=== PATIENT | male | born 1940 | race Caucasian/White ===

== ENCOUNTER 2018-02-16 19:27 | Emergency (ER) | payer MEDICARE, OTHER ==
--- NOTE | 2018-02-16 19:53 | ERPHSYRPT ---
- History of Present Illness Time Seen by Provider: 02/16/18 19:45 Source: patient Exam Limitations: no limitations Physician History: Is a 77-year-old white male arrives with complaint of bleeding from the left side of his face for 2-3 hours. Patient had a basal cell carcinoma removed from the left side of his face at approximately 2 to 3:00 this afternoon. Patient states that he had a small spot of bleeding after procedure but about 2- 3 hours ago he began having bleeding on the left side of his face. Patient states he placed ice pack on the area and continued bleeding. Past medical history includes polycythemia vera, atrial fibrillation, high blood pressure, diabetes 2 Past surgical history includes total hip arthroplasty (bilateral), shoulder surgery. Timing/Duration: today (basal cell removed left side of face at 2 or 3 this afternoon bleeding for 2-3 hours) Severity: moderate Associated Symptoms: No nausea, No vomiting, No abdominal pain, No shortness of breath, No heartburn, No diaphoresis, No cough, No chills, No chest pain, No fever, No headaches, No loss of appetite, No malaise, No rash, No syncope, No seizure, No weakness Allergies/Adverse Reactions: hydrocodone Adverse Reaction (Verified 02/16/18 20:56) "makes me crazy" - Review of Systems Constitutional: No Fever, No Chills Eyes: No Symptoms Ears, Nose, & Throat: No Symptoms Respiratory: No Cough, No Dyspnea Cardiac: No Chest Pain, No Edema, No Syncope Abdominal/Gastrointestinal: No Abdominal Pain, No Nausea, No Vomiting, No Diarrhea Genitourinary Symptoms: No Dysuria Musculoskeletal: No Back Pain, No Neck Pain Skin: Other (basal cell removed left side of face bleeding at wound site) Neurological: No Dizziness, No Focal Weakness, No Sensory Changes Psychological: No Symptoms Endocrine: No Symptoms All Other Systems: Reviewed and Negative - Past Medical History Pertinent Past Medical History: Yes Cardiac History: Arrhythmia (atrial fibrillation) - Nursing Vital Signs Nursing Vital Signs: Initial Vital Signs Temperature 98 F 02/16/18 20:44 Pulse Rate 96 H 02/16/18 20:44 Respiratory Rate 18 02/16/18 20:44 Blood Pressure 161/110 02/16/18 20:44 O2 Sat by Pulse Oximetry 96 02/16/18 20:44 Pain Scale Pain Intensity 4 - Physical Exam General Appearance: mild distress, other (edema left side of face , sutures present bleeding from wound) Eye Exam: PERRL/EOMI, eyes nml inspection Ears, Nose, Throat Exam: normal ENT inspection, TMs normal, pharynx normal, moist mucous membranes Neck Exam: normal inspection, non-tender, supple, full range of motion Respiratory Exam: normal breath sounds, lungs clear, No respiratory distress Cardiovascular Exam: regular rate/rhythm Gastrointestinal/Abdomen Exam: soft, normal bowel sounds, No tenderness, No mass Back Exam: normal inspection, normal range of motion, No CVA tenderness, No vertebral tenderness Extremity Exam: normal inspection, normal range of motion, pelvis stable Neurologic Exam: alert, oriented x 3, cooperative, normal mood/affect, nml cerebellar function, nml station & gait, sensation nml, No motor deficits Skin Exam: other (surgical wound left side of face sutures in place bleeding from wound.) SpO2 Interpretation: normal - Course Nursing assessment & vital signs reviewed: Yes Ordered Tests: Active Orders 24 hr Category Date Time Status IV Insertion STAT Care 02/16/18 19:44 Active - Progress Progress: improved Progress Note: 02/16/18 20:09 This is a 77-year-old white male status post basal cell carcinoma removal this afternoon around 2:00. Patient states that for 2-3 hours he's been having bleeding on the left side of his face. Patient had been on L acquits but has not taken any for 3 days he has also been on aspirin in the past but has not taken any for 7 days. He states that he a small spot of blood after procedure on dressing. However the patient states that he began to have increased bleeding approximately 3 hours ago. Patient tried placing ice packs to the area but he continued to bleed. On arrival patient continues to have bleeding on the left side of his face sutures are in place. He appears to have a swelling on the left side of his face and there is a stream of blood of about the size of her hair Spring from the inferior portion of the laceration. We of applied pressure applied a dressing patient saturated the dressing we also applied cold packs. I contacted Dr. Marquis, art objects salesperson for Dr Verdugo, the patient's ent physician. he requested that patient have direct pressure placed on the area for approximately 30 minutes. We had ordered a BMP CBC PT PTT however Dr. Marquis at this time states that we really don't need these. IV has been placed. Will contact Dr. Marquis. 02/16/18 20:41 Patient continues to have bleeding from the left side of his face this appears to be of this very small stream at the inferior portion of the patient's incision this is in spite of pressure being held to the area for [address] Marquis he requests that the patient present at [facility] emergency room. He is to have pressure held to the area. His states that she will drive him there. patient did have an IV placed here will cover this at this time. 02/16/18 21:00 - Departure Time of Disposition: 20:43 Departure Disposition: Transfer ([place] emergency room Dr Marquis) Clinical Impression: Post-op bleeding Qualifiers: Surgical complication system/body Area: skin Procedure type: dermatologic Qualified Code(s): L76.21 - Postprocedural hemorrhage of skin and subcutaneous tissue following a dermatologic procedure Condition: Fair Critical Care Time: No Referrals: KYLAH DIGGS [Primary Care Provider] - Additional Instructions: Present to [facility] emergency room. Apply pressure to area. No eating.
[2018-02-16 20:55] VITALS: PULSE 96; O2SAT 96
[2018-02-16 21:12] VITALS: BP 156/94
== END 2018-02-16 21:15 | disposition short-term general hospital (02) ==
LOC: ED 19:27
DX: L76.21 Postprocedural hemorrhage of skin and subcutaneous tissue following a dermatologic procedure (principal)
CPT/HCPCS: 36000; 99283; 99285

== ENCOUNTER 2019-01-24 10:58 | Day surgery (SDC) | payer MEDICARE, OTHER ==
--- NOTE | 2019-01-21 08:08 | HP ---
DATE OF SURGERY: 01/24/2019 HISTORY OF PRESENT ILLNESS: The patient is a 78 year-old with area posterior scalp as well as an area on the forehead and face area, two areas on the forehead and face area as well as posterior scalp. He has a history of squamous cell and basal cell. He is in need of excisional biopsy. PAST MEDICAL HISTORY: Polycythemia. Atrial fibrillation. Macular degeneration. Diabetes mellitus type 2. PAST SURGICAL HISTORY: Rotator cuff. Hip replaced. Right knee surgery in the past. Biopsies in the past. History of 31 basal cells and 7 squamous cells in the past. MEDICATIONS: Amiodarone, Eliquis, metoprolol, amlodipine besylate, docusate sodium, hydroxyurea, Lasix, Glipizide, Lipitor, doxycycline, glucosamine, metolazone, eye vitamins, saw palmetto, Biotin, Co-Q10, aspirin, stool softeners, Tylenol. ALLERGIES: HYDROCODONE. FAMILY HISTORY: Heart disease, cancer. SOCIAL HISTORY: No smoking or alcohol abuse. REVIEW OF SYSTEMS: Twelve systems reviewed. No chest pain or palpitations other systems negative or noncontributory as above and per preadmission questionnaire. PHYSICAL EXAMINATION: GENERAL: No acute distress. HEENT: Sclerae nonicteric. He has a couple lesions on his forehead in the face part of his forehead as well as more over towards the cheek as well as another one on the posterior scalp. NECK: No JVD. CHEST: Equal excursion, nonlabored breathing. CVS: Regular rate and rhythm. ABDOMEN: Soft, nondistended. EXTREMITIES: No edema. NEURO: Alert, oriented, moving extremities grossly symmetrically. No gross motor deficits noted. IMPRESSION: History of squamous cell and basal cell cancer in the past. Since they were biopsy proven they need a wide excision posterior scalp as well as two areas on the face biopsy sites in need of excision. I feel the patient will benefit from excisional biopsies of these areas, possible flap if indicated. Risks and benefits explained in detail but not limited to bleeding or infection, risk of wound complications or dehiscence, risk of involved margins possibly requiring other procedures or treatments, general risk of anesthesia, deep venous thrombosis, pulmonary embolism, pneumonia but not limited to. He understands and agrees to the planned procedure, will proceed with excisional biopsy of three face nonhealing biopsy sites as well as posterior scalp area.
[~2019-01-24 10:58] MED LIST: CEFAZOLIN 2 GM-D5W BAG** 2 GM/50 ML ML IV SCH; Lactated Ringers 0 ML IV ONE; Lactated Ringers 1,000 ML IV ONE; Lactated Ringers 1,000 ML IV SCH; Sensorcaine 0.25% 10 ML ONE
[2019-01-24] MEDS ORDERED: Decadron 4 MG INJ IV ONE (10:59)
[2019-01-24] MEDS ORDERED: Zemuron 100 MG/10 ML IV ONE (10:59)
[2019-01-24] MEDS ORDERED: DIPRIVAN 200 MG/20 ML IV ONE (10:59)
[2019-01-24] MEDS ORDERED: Xylocaine-Mpf 2% 5 Ml Vial IJ ONE (10:59)
[2019-01-24] MEDS ORDERED: SUBLIMAZE 100 MCG/2 ML IV ONE (10:59)
[2019-01-24] MEDS ORDERED: Zofran 4 MG/2 ML VIAL IV ONE (10:59)
[2019-01-24] MEDS ORDERED: Quelicin Fliptop 200 MG/10 ML IV ONE (10:59)
[2019-01-24] MEDS ORDERED: Sensorcaine 0.25% 10 ML ONE (13:07)
[2019-01-24] MEDS ORDERED: SUBLIMAZE 100 MCG/2 ML ONE (14:43)
[2019-01-24 16:01] VITALS: BP 143/64; PULSE 76; O2SAT 93
--- NOTE | 2019-01-25 08:24 | OP ---
SURGERY DATE/TIME: 01/24/2019 1305 PREOPERATIVE DIAGNOSIS: History of multiple skin cancers now with nonhealing lesions left forehead/face x2, left cheek x1, posterior scalp x1. POSTOPERATIVE DIAGNOSIS: History of multiple skin cancers now with nonhealing lesions left forehead/face x2, left cheek x1, posterior scalp x1. PROCEDURES: 1) Excisional biopsy of left cheek two nonhealing lesions en bloc 4 cm with margins with intermediate closure with local advancement flaps. 2) Excisional biopsy of lateral face/forehead approximately 1.6 cm with margins with intermediate closure. 3) Excisional biopsy of medial face/forehead approximately 1 cm with margins with intermediate closure. 4) Excisional biopsy posterior scalp ulcerated nonhealing lesion approximately 2 cm with intermediate closure. SURGEON: Dr. Placido Quintana. ANESTHESIA: General. ESTIMATED BLOOD LOSS: Minimal. INDICATIONS: As noted above. Risks and benefits explained in detail and not limited to and consent was obtained. The sites were confirmed and marked in preoperative holding area. DESCRIPTION OF PROCEDURE AND FINDINGS: He is taken to the operating room. General anesthesia introduced. Positioned in lateral position. Appropriate padding and positioned per anesthesia and OR staff. He was prepped and draped in usual sterile fashion. After official time out and no disagreement with planned procedure, starting with the medial most face/forehead lesion spindle-shaped excision down to normal appearing skin that he had available. He had very poor quality of skin. Dissection carried down to subcutaneous tissue beneath. Specimen passed off and measured about 1 cm with margins. The area on his forehead was undermined flap mobilized back towards the midline with interrupted 4-0 Vicryl. Skin closed with 5-0 Prolene running fashion. Gloves and instruments were changed. Attention was then turned to the exophytic nonhealing lateral face/forehead lesion excising down to normal appearing skin on either side of this. Dissection carried down to normal appearing subcutaneous tissue. Specimen passed off. It measured about 1.6 cm with margins. This to required undermining the flaps on either side advancing them back towards the midline on this tight area of skin. The flaps mobilized back towards the midline with interrupted 4-0 Vicryl. The skin was closed with some 5-0 Prolene in running fashion. Gloves and instruments were then changed and then addressed the left cheek area. There was a nonhealing lesion that had been marked by the patient. However there was just abnormal exophytic lesion immediately cephalad to this. It was felt this should all be taken en bloc which required a long spindle-shaped excision pattern dissecting down to normal appearing subcutaneous tissue and passed off. The specimen a couple of lesions en bloc measured about 4 cm with margins. Specimen passed off for pathology. Again this required undermining the flaps on either side and advanced back towards the midline with interrupted 3-0 Vicryl and 4-0 Vicryl with the skin and then closed with 5-0 running fashion Prolene in a running fashion. Good hemostasis noted. Again used a running suture as he had problems with bleeding after different procedures in the past. Gloves and instruments were changed and then addressed the posterior scalp ulcerated lesion marking out to normal appearing skin as he had available. Dissection carried down to normal appearing subcutaneous tissue. Flaps were mobilized back towards the midline with interrupted 3-0 Vicryl. Skin closed with vertical mattress 3-0 Prolene. Sterile dressing applied. Findings discussed with the family out in the waiting area. He was transferred to recovery room in stable condition.
== END 2019-01-24 16:00 | disposition home or self-care (01) ==
LOC: SDC 10:58
PROVIDERS: ATTEND Surgery
DX: C44.319 Basal cell carcinoma of skin of other parts of face (principal); C44.82 Squamous cell carcinoma of overlapping sites of skin; D09.8 Carcinoma in situ of other specified sites; E11.9 Type 2 diabetes mellitus without complications; Z85.828 Personal history of other malignant neoplasm of skin; Z79.01 Long term (current) use of anticoagulants; Z79.899 Other long term (current) drug therapy; I48.91 Unspecified atrial fibrillation
CPT/HCPCS: 82962; 99100; J0330; J1100; J2405; J2704; J3010

== ENCOUNTER 2019-06-27 10:08 | Day surgery (SDC) | payer MEDICARE, OTHER ==
--- NOTE | 2019-06-27 08:31 | HP ---
AMENDED REPORT: DATE OF SURGERY: 06/27/2019 HISTORY OF PRESENT ILLNESS: The patient is an 79 year-old gentleman with squamous cell carcinoma biopsied by [facility]. He is in need of wide excision possible flap or skin graft. PAST MEDICAL HISTORY: Polycythemia, atrial fibrillation, macular degeneration, diabetes mellitus type 2. PAST SURGICAL HISTORY: Rotator cuff. Hip replaced. Right knee surgery. MEDICATIONS: Amiodarone, clonidine, Eliquis, labetalol, amlodipine, hydroxyzine, Lasix, Glipizide, Lipitor, metolazone, losartan, vitamin D, glucosamine chondroitin, eye vitamins, ARED-2, omega-3, saw palmetto, Co-Q10, aspirin, stool softeners. ALLERGIES: HYDROCODONE. FAMILY HISTORY: Heart disease, cancer. SOCIAL HISTORY: No smoking or alcohol abuse. REVIEW OF SYSTEMS: Fourteen systems reviewed. Pertinent for chronic skin changes, skin cancer in the past as well. Left nose had squamous cell carcinoma. Other systems negative or noncontributory as above and per preadmission questionnaire. PHYSICAL EXAMINATION: GENERAL: No acute distress. HEENT: Sclerae nonicteric. NECK: No JVD. CHEST: Equal excursion, nonlabored breathing. CVS: Regular rate and rhythm. ABDOMEN: Soft. No peritoneal signs. EXTREMITIES: No significant edema. NEURO: Alert, oriented, moving extremities symmetrically. No gross motor deficits noted. IMPRESSION: Left nose squamous cell carcinoma. I feel the patient will benefit from excisional biopsy, possible skin graft and possible flap. Risks and benefits explained in detail including but not limited to bleeding or infection, risk of nonhealing of any flap or graft performed, general risk of aches and pains, risk of involved margins possibly requiring consideration of radiation therapy or wider excision, general risk of anesthesia, deep venous thrombosis, pulmonary embolism, pneumonia, risk of cardiopulmonary event given his comorbidities but not limited to. He understands and agrees to the planned procedure. We will proceed with outpatient wide excision of left nose squamous carcinoma possible flap, possible skin graft as an outpatient.
[~2019-06-27 10:08] MED LIST changes: -CEFAZOLIN 2 GM-D5W BAG** 2 GM/50 ML ML IV SCH; +DIPRIVAN 200 MG/20 ML IV ONE; -Lactated Ringers 0 ML IV ONE; -Lactated Ringers 1,000 ML IV SCH; +Quelicin Fliptop 200 MG/10 ML ONE; +SUBLIMAZE 100 MCG/2 ML ONE; +Zemuron 100 MG/10 ML ONE
[2019-06-27] MEDS ORDERED: KEFZOL 1 GM IJ ONE (10:09)
[2019-06-27] MEDS ORDERED: Sodium Chloride 0.9% 1000 ML 1,000 ML IV SCH (11:00)
[2019-06-27] MEDS ORDERED: MINERAL OIL LIGHT 10 ML FOR SURGERY ONE (11:33)
[2019-06-27] MEDS ORDERED: XYLOCAINE 1%/Epi 1:100000 MDV 20 ML ONE (11:33)
[2019-06-27] MEDS ORDERED: Decadron 4 MG INJ ONE (12:45)
[2019-06-27] MEDS ORDERED: Zofran 4 MG/2 ML VIAL ONE ×2 (12:45→13:32)
[2019-06-27] MEDS ORDERED: BRIDION 200MG/2ML IV ONE (13:04)
[2019-06-27] MEDS ORDERED: SUBLIMAZE 100 MCG/2 ML ONE (13:17)
[2019-06-27] MEDS ORDERED: DILAUDID 2 MG INJECTION ONE (13:20)
[2019-06-27 14:53] VITALS: PULSE 73
[2019-06-27 15:09] VITALS: BP 157/90; O2SAT 96
--- NOTE | 2019-06-27 15:19 | OP ---
SURGERY DATE/TIME: 06/27/2019 1220 PREOPERATIVE DIAGNOSIS: Squamous cell carcinoma left node, need for wide excision. POSTOPERATIVE DIAGNOSIS: Squamous cell carcinoma left node, need for wide excision. PROCEDURE: Wide excision left nose squamous cell carcinoma biopsy site approximately 1.8 cm with split thickness skin graft coverage approximately 2.5 cm/sq (donor site left neck). SURGEON: Dr. Placido Quintana. ANESTHESIA: General. ESTIMATED BLOOD LOSS: Minimal. INDICATIONS: As noted above. Risks and benefits explained in detail and not limited to and consent obtained. DESCRIPTION OF PROCEDURE AND FINDINGS: The patient is taken to the operating room. General anesthesia induced. The nose and neck were prepped and draped in usual sterile fashion. After official time out and no disagreement with planned procedure, again the site had been marked in preoperative holding area. Sharp dissection was carried out to normal appearing skin he had around the area in his left nose approximately 2 cm defect that is over 1 cm wide. The specimen itself with margins is approximately 1.8 cm size, this resulted in a defect. Given his limited quality of skin around the area it was felt it would be better to take the skin graft from the neck as he had limited quality skin around the area. Therefore a donor site in the left neck marked out to margins with a pen. Spindle-shaped segment of skin was taken. A full thickness skin graft was then meshed slightly with the scalpel and then secured a size about 2 cm long by 1 cm wide. It was approximately 2.5 cm/sq graft coverage secured with Prolene suture around the edges with Adaptic, mineral oil and bolster compression dressing applied and Prolene sutures tied over the top. Sterile dressing applied. The patient tolerated the procedure well. 0.25% Marcaine local injected along the donor site of the neck. The neck wound area was closed with 3-0 Vicryl in subcu. Skin closed with 4-0 Prolene and sterile dressing applied. The patient tolerated the procedure well. Findings discussed with the family out in the waiting area.
== END 2019-06-27 15:10 | disposition home or self-care (01) ==
LOC: SDC 10:08
PROVIDERS: ATTEND Surgery
DX: C44.311 Basal cell carcinoma of skin of nose (principal); E11.9 Type 2 diabetes mellitus without complications; Z79.01 Long term (current) use of anticoagulants; Z79.899 Other long term (current) drug therapy
CPT/HCPCS: 82962; 99100; J0330; J0690; J1100; J1170; J2405; J2704; J3010; A9270-GY

== ENCOUNTER 2020-03-08 15:05 | Inpatient (IN) | payer MEDICARE, OTHER ==
--- NOTE | 2020-03-08 15:32 | ERPHSYRPT ---
- History of Present Illness Time Seen by Provider: 03/08/20 15:20 Source: patient Patient Subjective Stated Complaint: Pt had fallen several times over the weekend and was taken to [facility] on Thursday due to falling and hitting his head and having weakness, scan was negative, pt was sent home today from [place] and called Dr. Diggs (pt's neighbor) and stated that he was too weak to be home and so Dr. Diggs wanted him to come in and be evaluated, pt had been getting radiation to his neck for the past 6 weeks and he states that is when he became weak Triage Nursing Assessment: Pt brought to ER by EMS, bruising on ceferino feet and toes due to falling and twisting his toes under him, scattered bruising to ceferino legs and right hip, diarrhea x3 today, hypotensive, pt had fallen and broke his right hip on either Fri, Sat, or Sun, and it was a 4cm break but the doctor said that he won't touch it until it is 10 cm, pt unable to stand on his own due to pain and weakness, shingles to face, denies pain unless he tries to stand Physician History: Patient is an 79-year-old male presents to our ED for generalized weakness. Patient has a history of squamous cell carcinoma. He is currently on radiation. Patient has been experiencing some weakness and has resolved has fallen. Patient went to [facility] he was diagnosed with a right hip periprosthetic fracture. The fracture was nonsurgical. Patient was discharged home yesterday. Upon arrival patient felt too weak to perform ADL. Patient called his primary doctor who advised patient to come to our ED for a work-up of his generalized weakness. No associated nausea or vomiting. No diarrhea. No fever. No rash. No chest pain or shortness of breath. Patient's weakness has been progressive. While in hospital patient had received CT head which was negative. Scan was performed as patient is currently on Eliquis for A. fib. No interval falls or trauma since discharge from [facility]. Patient declined a repeat CT head at this time. Patient has scattered bruises lower extremities. However this has been worked up extensively therefore there is no indication to reimage the sites. Timing/Duration: week(s) (Weakness for 1 week.) Severity: moderate Modifying Factors: Improves With: other (No modifying factors.) Associated Symptoms: denies symptoms, No nausea, No vomiting, No abdominal pain , No diaphoresis, No cough, No chills, No chest pain, No fever, No headaches Allergies/Adverse Reactions: hydrocodone Adverse Reaction (Verified 03/08/20 15:25) "makes me crazy" Home Medications: Amiodarone HCl 200 mg PO DAILY 02/16/18 [History] Amlodipine Besylate 2.5 mg PO BID 02/16/18 [History] Apixaban [Eliquis 5 mg Tablet] 2.5 mg PO BID 02/16/18 [History] Aspirin [Aspir-Low] 81 mg PO DAILY 02/16/18 [History] Atorvastatin Calcium [Lipitor] 10 mg PO DAILY 02/16/18 [History] Docusate Sodium [Colace] 200 mg PO DAILY 02/16/18 [History] Doxazosin Mesylate 4 mg PO BID 02/16/18 [History] Furosemide 40 mg PO BID 02/16/18 [History] Glipizide [Glipizide Xl] 5 mg PO DAILY 02/16/18 [History] Saw [place] 320 mg PO BID 02/16/18 [History] Ubidecarenone [Co Q-10] 100 mg PO DAILY 02/16/18 [History] Clonidine HCl 0.1 mg [Catapres 0.1 MG] 0.1 mg PO BID 06/17/19 [History] Ergocalciferol (Vitamin D2) [Vitamin D] 50,000 unit PO WEEKLY 06/17/19 [History] Losartan Potassium [Cozaar] 25 mg PO HS 06/17/19 [History] metOLazone [Metolazone] 5 mg PO UD 06/17/19 [History] Glucosamine/MSM/Chondroitin A [Rkhbwcrhcba-Xwxii-DLL Caplet] 1 each PO BID 03/08 [History] Vit C/E/Zn/Coppr/Lutein/Zeaxan [Preservision Areds 2 Softgel] 1 each PO UD 03/08 [History] Travel Risk - International Travel Have you traveled outside of the country in past 3 weeks: No Have you or anyone close to you been diagnosed with or: No Do your reside in a community with a known COVID-19 case?: Yes If Yes where:: [place] - Coronavirus Screening Has patient experienced Coronavirus symptoms: No - Review of Systems Constitutional: No Symptoms, No Fever, No Chills Eyes: No Symptoms Ears, Nose, & Throat: No Symptoms Respiratory: No Symptoms, No Cough, No Dyspnea Cardiac: No Symptoms, No Chest Pain, No Edema, No Syncope Abdominal/Gastrointestinal: No Symptoms, No Abdominal Pain, No Nausea, No Vomiting, No Diarrhea Genitourinary Symptoms: No Symptoms, No Dysuria Musculoskeletal: No Symptoms, No Back Pain, No Neck Pain Skin: No Symptoms, Other, No Rash Neurological: No Symptoms, No Dizziness, No Focal Weakness, No Sensory Changes Psychological: No Symptoms Endocrine: No Symptoms Hematologic/Lymphatic: No Symptoms Immunological/Allergic: No Symptoms All Other Systems: Reviewed and Negative - Past Medical History Pertinent Past Medical History: Yes Neurological History: Migraines, Peripheral Neuropathy ENT History: Macular Degeneration Cardiac History: Arrhythmia, High Cholesterol, Hypertension Respiratory History: COPD Endocrine Medical History: Diabetes Type II Musculoskeletal History: Osteoarthritis GI Medical History: GERD History: Renal Disease, Other Psycho-Social History: No Pertinent History Male Reproductive Disorders: Prostate Problems Other Medical History: polycythemia, DMII., benign kidney mass. 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 HX a-fib, unknown stage of kidney failure- no dialysis, squamous cell carcinoma under the left ear, shingles on face - Past Surgical History Past Surgical History: Yes Neuro Surgical History: No Pertinent History Cardiac: Cardiac Catheterization Respiratory: No Pertinent History Gastrointestinal: No Pertinent History Genitourinary: No Pertinent History Musculoskeletal: Joint Replacement Male Surgical History: No Pertinent History Other Surgical History: bilat hip replacement, right rotator cuff, basal cell carcinoma removal- several times 35x, Right knee replacement, kidney needle bx benign, gland out of neck, saliva gland removed - Social History Smoking Status: Never smoker Exposure to second hand smoke: No Drug Use: none Patient Lives Alone: No - Nursing Vital Signs Nursing Vital Signs: Initial Vital Signs Temperature 98.2 F 03/08/20 15:08 Pulse Rate 87 03/08/20 15:08 Respiratory Rate 15 03/08/20 15:08 Blood Pressure 92/54 03/08/20 15:08 O2 Sat by Pulse Oximetry 97 03/08/20 15:08 Pain Scale Pain Intensity [Right Hip] 0 Pain Intensity 0 - Physical Exam General Appearance: no apparent distress, alert, other (Generalized weakness no focal or lateralizing symptomology or objective findings.), No lethargy Eye Exam: PERRL/EOMI, eyes nml inspection Ears, Nose, Throat Exam: normal ENT inspection, TMs normal, pharynx normal, moist mucous membranes Neck Exam: normal inspection, non-tender, supple, full range of motion Respiratory Exam: normal breath sounds, lungs clear, No respiratory distress Cardiovascular Exam: regular rate/rhythm, normal heart sounds, normal peripheral pulses Gastrointestinal/Abdomen Exam: soft, normal bowel sounds, No tenderness, No mass Back Exam: normal inspection, normal range of motion, No CVA tenderness, No vertebral tenderness Extremity Exam: normal inspection, normal range of motion, pelvis stable Neurologic Exam: alert, oriented x 3, cooperative, normal mood/affect, nml cerebellar function, sensation nml, No motor deficits Skin Exam: normal color, warm, dry, other (Multiple dry scaly lesions on face which are chronic.), No rash Lymphatic Exam: No adenopathy SpO2 Interpretation: normal SpO2: 97 O2 Delivery: Room Air - Course Nursing assessment & vital signs reviewed: Yes EKG Interpreted by Me: RATE, A-fib, Left [place] Deviation, NORMAL INTERVALS Ordered Tests: Active Orders 24 hr Category Date Time Status Associate Chief Nurse STAT Care 03/08/20 15:29 Active EKG-ER Only STAT Care 03/08/20 15:27 Active IV Insertion STAT Care 03/08/20 15:27 Active Pulse Oximetry (ED) STAT Care 03/08/20 15:27 Active CHEST 1 VIEW (PORTABLE) Stat Exams 03/08/20 15:29 Completed CBC W DIFF Stat Lab 03/08/20 16:30 Completed CK-Creatinine Phosphokinase Stat Lab 03/08/20 16:30 Completed CMP Stat Lab 03/08/20 16:30 Completed Manual Differential NC Stat Lab 03/08/20 16:30 Completed TROPONIN Q3H Lab 03/08/20 16:30 Completed TROPONIN Q3H Lab 03/08/20 18:30 Ordered TROPONIN Q3H Lab 03/08/20 21:30 Ordered TROPONIN Q3H Lab 03/09/20 00:30 Ordered TROPONIN Q3H Lab 03/09/20 03:30 Ordered Medication Summary Generic Name Dose Route Start Last Admin Trade Name Freq PRN Reason Stop Dose Admin Sodium Chloride 1,000 mls @ 100 mls/hr 03/08/20 15:30 03/08/20 16:33 Sodium Chloride 0.9% 1000 Ml IV 04/07/20 15:29 100 mls/hr .Q10H ROBIN Administration Lab/Rad Data: Laboratory Result Diagrams 03/08/20 16:30 03/08/20 16:30 Laboratory Results 03/08/20 03/08/20 03/08/20 Range/Units 16:30 16:30 16:30 WBC 8.9 (4.0-10.5) K/mm3 RBC 2.94 L (4.1-5.6) M/mm3 Hgb 9.0 L (12.5-18.0) gm/dl Hct 27.8 L (42-50) % MCV 94.6 (78-100) fl MCH 30.6 (26-32) pg MCHC 32.4 (32-36) g/dl RDW 15.8 H (11.5-14.0) % Plt Count 84 L (150-450) K/mm3 MPV 10.7 (7.5-11.0) fl Sodium 133 L (137-145) mmol/L Potassium 4.3 (3.5-5.1) mmol/L Chloride 99 (98-107) mmol/L Carbon Dioxide 23 (22-30) mmol/L Anion Gap 15.1 H (5-15) MEQ/L BUN 72 H (9-20) mg/dL Creatinine 3.32 H (0.66-1.25) mg/dL Estimated GFR 19.1 ML/MIN Glucose 122 H (74-106) mg/dL Calcium 9.3 (8.4-10.2) mg/dL Total Bilirubin 0.80 (0.2-1.3) mg/dL AST 31 (17-59) U/L ALT 25 (0-50) U/L Alkaline Phosphatase 108 (38-126) U/L Creatine Kinase 107 (55-170) U/L Troponin I 0.270 H* (0.000-0.034) ng/mL Serum Total Protein 6.3 (6.3-8.2) g/dL Albumin 3.4 L (3.5-5.0) g/dL - Progress Progress: improved Progress Note: Patient reassessed. While in our ED patient spiked a fever. Blood cultures obtained. Lactic acid ordered. ABG ordered. Jonan ordered as well. Work-up reveals acute renal injury, pulmonary infiltrates possible pneumonia. IV fluids infusing. Troponin elevated likely due to compromised renal function. We will trend troponin. No ischemia observed on his EKG. Case discussed with Dr. Diggs who accepts admission to observation. I personally discussed the possibility/option of transfer to [facility] where his digital librarian is on staff. Patient refused transfer. Patient was adamant about staying in our hospital for further evaluation and treatment. Plan of care discussed with patient and his . They both agreed to admission to [facility] for further evaluation and treatment. 03/08/20 18:04 03/08/20 18:06 Discussed with .: Senait Will see patient in: hospital (observation) Counseled pt/family regarding: lab results, diagnosis, rad results - Departure Departure Disposition: Home Clinical Impression: Generalized weakness, Normocytic anemia, Thrombocytopenia, High anion gap metabolic acidosis, Acute renal injury, Elevated troponin, Lung infiltrate, Lung granuloma, Osteopenia, Degenerative arthritis Condition: Stable Critical Care Time: Yes Critical Care Time(excluding separately billable procedures): Critical 75-104 mins Referrals: KYLAH DIGGS [Primary Care Provider] -
[2020-03-08] MEDS: Sodium Chloride 0.9% 1000 ML 1,000 ML IV SCH (16:33)
[2020-03-08 16:49] LABS: Hematocrit 27.8 % (42-50); Mean Cell Volume 94.6 fl (78-100); Mean Corpuscular Hemoglobin 30.6 pg (26-32); Mean Corpuscular Hgb Concent. 32.4 g/dl (32-36); Mean Platelet Volume 10.7 fl (7.5-11.0); Platelet Count 84 K/mm3 (150-450); Red Blood Count 2.94 M/mm3 (4.1-5.6); Red Cell Distribution Width 15.8 % (11.5-14.0); White Blood Count 8.9 K/mm3 (4.0-10.5)
[2020-03-08 16:52] LABS: ALBUMIN 3.4 g/dL (3.5-5.0); ANION GAP 15.1 MEQ/L (5-15); BILIRUBIN,TOTAL 0.8 mg/dL (0.2-1.3); Calcium 9.3 mg/dL (8.4-10.2); Creatinine 1 3.32 mg/dL (0.66-1.25); Potassium 4.3 mmol/L (3.5-5.1); Total Protein 6.3 g/dL (6.3-8.2)
--- NOTE | 2020-03-08 17:05 | XRAY ---
Indication: Pain. Pneumonia. Comparison: None Portable chest demonstrates hazy left lung base, infiltrate versus atelectasis. Remaining heart and lungs unremarkable with a few incidental calcified granulomas. Bony thorax intact with mild osteopenia, degenerative changes, and tiny right shoulder foreign body.
[2020-03-08] MEDS ORDERED: Zosyn 2.25 GM 2.25 GM in Sodium Chloride 100ML MINI-BAG PLUS 100 ML IV ONE (17:38)
[2020-03-08] MEDS ORDERED: Vancomycin 1GM/ Ns 250ML*** 250 ML IV ONE (17:38)
[2020-03-08] MEDS: VANCOMYCIN 1.5 GRAM/300 ML BAG 1.5 GM/300 ML PIGGYBACK IV SCH (18:00)
[2020-03-08 18:09] LABS: Basophil 1 % (0.0-1.0); Lymphocytes 22 % (24-44); Monocyte 7 % (0.0-12.0); Neutrophils 70 % (36.-66.); Total Cells Counted 100
[2020-03-08 18:10] LABS: ANISOCYTOSIS 1+; Nucleated Red Blood Cell 1 %; Platelet Estimate DECREASED (NORMAL); Poikilocytosis 1+; Polychromasia 1+
[2020-03-08 18:15] LABS: VBG BASE EXCESS -3.3 (-2.0-2.0); VBG CARBOXYHEMOGLOBIN 2.7 % T HGB (0.0-6.9); VBG HCO3- 21.3 meq/L (22-28); VBG HEMOGLOBIN 10.1; VBG O2 SATURATION 29.4 (95-100); VBG POTASSIUM 4.5 (3.5-5.1); VBG pH 7.38 (7.32-7.42)
[2020-03-09 02:21] LABS: Appearance TURBID (CLEAR); Bacteria FEW /HPF (NEGATIVE); Bilirubin NEGATIVE (NEGATIVE); Blood MODERATE Ery/ul (0-5); Glucose NEGATIVE (NEGATIVE); Ketones TRACE (NEGATIVE); Leukocyte Esterase LARGE (NEGATIVE); Nitrite NEGATIVE (NEGATIVE); Non-Squamous Epithelial Cells RARE /HPF (FEW); Protein,Urine Dip 100 (Negative); RBC 26-50 /HPF (0-2); Specific Gravity 1.013 (1.005-1.025); Urobilinogen NEGATIVE mg/dL (0-1); WBC >100 /HPF (0-5)
[2020-03-09] MEDS: Sodium Chloride 0.9% 1000 ML 1,000 ML IV SCH ×2 (02:56→22:18)
[2020-03-09 05:00] LABS: Hematocrit 27.8 % (42-50); Mean Cell Volume 94.2 fl (78-100); Mean Corpuscular Hemoglobin 30.5 pg (26-32); Mean Corpuscular Hgb Concent. 32.4 g/dl (32-36); Mean Platelet Volume 10.5 fl (7.5-11.0); Platelet Count 69 K/mm3 (150-450); Red Blood Count 2.95 M/mm3 (4.1-5.6); Red Cell Distribution Width 15.9 % (11.5-14.0); White Blood Count 7.5 K/mm3 (4.0-10.5)
[2020-03-09] MEDS ORDERED: HUMALOG SQ PRN (05:06)
[2020-03-09 05:12] LABS: ALBUMIN 2.8 g/dL (3.5-5.0); ANION GAP 17.6 MEQ/L (5-15); BILIRUBIN,TOTAL 0.8 mg/dL (0.2-1.3); Calcium 8.9 mg/dL (8.4-10.2); Creatinine 1 3.29 mg/dL (0.66-1.25); Potassium 4.6 mmol/L (3.5-5.1); Total Protein 5.2 g/dL (6.3-8.2)
[2020-03-09] MEDS ORDERED: PHARMACY DOSING REQUEST MC ONE (05:52)
[2020-03-09] MEDS ORDERED: Zosyn 3.375 GM Vial IV ONE (06:20)
[2020-03-09] MEDS ORDERED: Sodium Chloride 0.9% 100 ML IVPB 100 ML IV ONE (06:22)
[2020-03-09] MEDS ORDERED: Zosyn 3.375 GM Vial 3.375 GM in Sodium Chloride 100ML MINI-BAG PLUS 100 ML IV ONE (06:25)
[2020-03-09 07:51] LABS: BAND 21 % (0.0-2.0); Lymphocytes 2 % (24-44); Monocyte 11 % (0.0-12.0); Neutrophils 66 % (36.-66.); Total Cells Counted 100
[2020-03-09 07:53] LABS: ANISOCYTOSIS 1+; Platelet Estimate DECREASED (NORMAL); Poikilocytosis 1+
[2020-03-09] MEDS ORDERED: LOPRESSOR 5 MG/5 ML INJECTION IV ONE (08:08)
[2020-03-09] MEDS: TYLENOL 325 MG PO PRN ×2 (09:26→20:59)
[2020-03-09] MEDS: Lopressor 50 MG PO SCH ×2 (09:26→20:59)
[2020-03-09] MEDS ORDERED: NON-FORMULARY ITEM (Vit C/E/Zn/Coppr/Lutein/Zeaxan [Preservision Areds 2 Softgel] 1 EACH) PO SCH (09:30)
[2020-03-09] MEDS ORDERED: SAW PALMETTO 320 MG PO SCH (10:00)
[2020-03-09] MEDS ORDERED: NORVASC 5 MG PO SCH (10:00)
[2020-03-09] MEDS ORDERED: GLUCOSAMINE PO SCH (10:00)
[2020-03-09] MEDS ORDERED: [UNRECOGNIZED DRUG - OTHER] PO SCH (10:00)
[2020-03-09] MEDS ORDERED: MSM PO SCH (10:00)
[2020-03-09] MEDS ORDERED: CHONDROITIN A PO SCH (10:00)
[2020-03-09] MEDS ORDERED: MORPHINE SULFATE 2 MG INJ IV PRN (10:11)
[2020-03-09] MEDS ORDERED: MEDICATION INTERVENTION MC SCH ×3 (10:15)
[2020-03-09] MEDS: ECOTRIN 81 MG PO SCH (10:34)
[2020-03-09] MEDS: Ocuvite Tablet PO SCH ×2 (10:34→20:59)
[2020-03-09] MEDS: Lasix 40 MG PO SCH ×2 (10:35→17:19)
[2020-03-09] MEDS: Cordarone 200 MG PO SCH (10:35)
[2020-03-09] MEDS: Colace 100 MG PO SCH (10:35)
--- NOTE | 2020-03-09 12:23 | XRAY ---
Indication: Dysphagia. Modified barium swallow study was performed bedside by the department of speech therapy with fluoroscopic assistance provided. Patient ingested multiple consistencies of liquids and solids. Full report and recommendations will be reported separately. Approximately 87 seconds fluoroscopy used.
[2020-03-09 12:35] LABS: Appearance CLOUDY (CLEAR); Bacteria MODERATE /HPF (NEGATIVE); Bilirubin NEGATIVE (NEGATIVE); Blood MODERATE Ery/ul (0-5); Glucose NEGATIVE (NEGATIVE); Ketones TRACE (NEGATIVE); Leukocyte Esterase LARGE (NEGATIVE); Mucus SLIGHT /HPF (NEGATIVE); Nitrite NEGATIVE (NEGATIVE); Protein,Urine Dip 100 (Negative); RBC 51-100 /HPF (0-2); Specific Gravity 1.013 (1.005-1.025); Urobilinogen NEGATIVE mg/dL (0-1); WBC >100 /HPF (0-5)
[2020-03-09] MEDS ORDERED: Phenergan 25 MG INJ IV PRN (18:56)
[2020-03-09] MEDS ORDERED: BUMEX 1 MG IV ONE (20:43)
[2020-03-09] MEDS ORDERED: BUMEX 1 MG ONE (20:47)
[2020-03-09] MEDS: Zocor 10MG PO SCH (20:59)
[2020-03-09] MEDS: Zosyn 3.375 GM Vial 3.375 GM in Sodium Chloride 100ML MINI-BAG PLUS 100 ML IV SCH (21:01)
[2020-03-10 06:43] LABS: Hematocrit 27.2 % (42-50); Hemoglobin 8.8 gm/dl (12.5-18.0); Mean Cell Volume 94.4 fl (78-100); Mean Corpuscular Hemoglobin 30.6 pg (26-32); Mean Corpuscular Hgb Concent. 32.4 g/dl (32-36); Mean Platelet Volume 11.8 fl (7.5-11.0); Platelet Count 81 K/mm3 (150-450); Red Blood Count 2.88 M/mm3 (4.1-5.6); Red Cell Distribution Width 15.7 % (11.5-14.0); White Blood Count 8.1 K/mm3 (4.0-10.5)
[2020-03-10 06:51] LABS: ANION GAP 16.7 MEQ/L (5-15); Calcium 9.1 mg/dL (8.4-10.2); Creatinine 1 3.82 mg/dL (0.66-1.25); Potassium 4.1 mmol/L (3.5-5.1)
--- NOTE | 2020-03-10 08:41 | PCM.NOTE ---
Date and Time: 03/10/20 0836 Subjective Assessment: Patient reports that he feels better today. He states he is probably not drinking as much as he should but reports he had good urine output last night. He states his breathing is ok. Continued generalized weakness. - Review of Systems Constitutional: Weakness Respiratory: No Symptoms Cardiac: No Symptoms Abdominal/Gastrointestinal: Other (reports either constipation or diarrhea but never normal) Genitourinary Symptoms: Other (better urination last night) Objective Exam General Appearance: no apparent distress, other (poor vision) Neurologic Exam: alert, cooperative, normal mood/affect Skin Exam: normal color, other (multiple crusted scaly area on his head and neck ) Wound Assessment: Skin/Wound Assessment Wound/Incision Assessment Start: 03/08/20 21: 49 Text: Status: Active Freq: Q6H Protocol: Document 03/10/20 07:55 RDNE (Rec: 03/10/20 07:56 RDNE [id number]) Wound/Incision Assessment Right Arm Wound Assessment Shift Assessment Wound Type Skin Tear Dressing Status Dry & Intact Drainage Amount None Wound Photo Photo Taken No Respiratory Exam: normal breath sounds, lungs clear, other (on oxygen by nasal cannula), No crackles/rales, No rhonchi, No wheezing Cardiovascular Exam: regular rate/rhythm, normal heart sounds, No murmur, No friction rub, No gallop Gastrointestinal/Abdomen Exam: soft, normal bowel sounds Extremity Exam: other (trace edema bilat; bruises and few excoriations on his toes and forefeet bilat) OBJECTIVE DATA Vital Signs: Vital Signs - 24 hr Temp Pulse Resp BP Pulse Ox 03/10/20 07:49 99 03/10/20 07:02 99.1 F 111 H 17 125/65 99 03/10/20 04:00 98.2 F 111 H 18 150/93 98 03/10/20 02:10 100 H 17 137/75 97 03/09/20 22:00 94 H 20 110/59 97 03/09/20 16:29 98.1 F 96 H 18 132/64 99 03/09/20 13:09 98.1 F 101 H 18 105/64 95 03/09/20 11:46 101 H 18 105/64 95 03/09/20 10:00 98.1 F 92 H 16 89/46 97 03/09/20 09:41 102.0 F 100 H 16 113/67 Pain Assessment - Last Documented Pain Intensity [Right Hip] 0 Pain Intensity 0 Pain Scale Used 0-10 Pain Scale Intake and Output: Intake & Output 03/08/20 03/09/20 03/10/20 03/11/20 06:59 06:59 06:59 06:59 Intake Total 1771 1195 Output Total 425 665 Balance 1346 530 Weight 123 kg 122.5 kg Lab Results: Accuchecks Date 03/09/20 Date 03/09/20 Date 03/09/20 Time 21:40 Time 16:30 Time 11:30 Accucheck Value: 163 Accucheck Value: 191 Accucheck Value: 159 Accucheck Value: 205 Lab Results-Last 24 Hours 03/09/20 03/10/20 03/10/20 Range/Units 10:45 06:00 06:00 WBC Pending RBC Pending Hgb Pending Hct Pending MCV Pending MCH Pending MCHC Pending RDW Pending Plt Count Pending MPV Pending Sodium 133 L (137-145) mmol/L Potassium 4.1 (3.5-5.1) mmol/L Chloride 100 (98-107) mmol/L Carbon Dioxide 21 L (22-30) mmol/L Anion Gap 16.7 H (5-15) MEQ/L BUN 90 H (9-20) mg/dL Creatinine 3.82 H (0.66-1.25) mg/dL Estimated GFR 16.3 ML/MIN Glucose 143 H (74-106) mg/dL Calcium 9.1 (8.4-10.2) mg/dL Urine Color YELLOW (YELLOW) Urine Appearance CLOUDY (CLEAR) Urine pH 5.0 (5-6) Ur Specific [place] 1.013 (1.005-1.025) Urine Protein 100 (Negative) Urine Ketones TRACE (NEGATIVE) Urine Blood MODERATE (0-5) Paco/ul Urine Nitrite NEGATIVE (NEGATIVE) Urine Bilirubin NEGATIVE (NEGATIVE) Urine Urobilinogen NEGATIVE (0-1) mg/dL Ur Leukocyte Esterase LARGE (NEGATIVE) Urine WBC (Auto) >100 (0-5) /HPF Urine RBC (Auto) 51-100 (0-2) /HPF U Epithel Cells (Auto) NONE (FEW) /HPF Urine Bacteria (Auto) MODERATE (NEGATIVE) /HPF Urine Mucus (Auto) SLIGHT (NEGATIVE) /HPF Urine Culture Reflexed YES (NO) Urine Glucose NEGATIVE (NEGATIVE) mg/dL Radiology Exams: Radiology Procedures Category Date Time Status CHEST 1 VIEW (PORTABLE) Stat Exams 03/08/20 15:29 Completed MODIFIED BARIUM SWALLOW (RAD) [MODIFIED BARIUM SWALLOW Exams 03/09/20 12:01 Completed EXAM] Routine Assessment/Plan (1) Sepsis Current Visit: Yes Status: Acute Qualifiers: Sepsis acute organ dysfunction status: with acute organ dysfunction Severe sepsis acute organ dysfunction type: acute renal failure Severe sepsis shock status: without septic shock Assessment & Plan: Continue IV vancomycin and IV zosyn Day 3. Blood cultures and urine culture no growth to date. He has infiltrate on chest X-ray. (2) Chronic kidney disease, stage IV (severe) Current Visit: Yes Status: Acute Assessment & Plan: Patient has see Dr. Correa in the past. Baseline creatinine seems to be high 2's to low 3's. BUN more elevated today but I did give one dose of IV bumex last night. Code(s): N18.4 - CHRONIC KIDNEY DISEASE, STAGE 4 (SEVERE) (3) Acute renal injury Current Visit: Yes Status: Acute Assessment & Plan: Discussed with Dr. Hunt, Abrading Machine Tender monogram technician for patient's patient access associate. Will give 1 L normal saline at 70 mL/hr and then recheck labs in AM. Code(s): N17.9 - ACUTE KIDNEY FAILURE, UNSPECIFIED (4) Pneumonia Current Visit: Yes Status: Acute Qualifiers: Laterality: left Lung location: lower lobe of lung Assessment & Plan: Continue current antibiotics. Code(s): J18.9 - PNEUMONIA, UNSPECIFIED ORGANISM (5) Cardiomyopathy Current Visit: Yes Status: Acute Code(s): I42.9 - CARDIOMYOPATHY, UNSPECIFIED (6) Metastatic squamous cell carcinoma Current Visit: Yes Status: Acute Code(s): C79.9 - SECONDARY MALIGNANT NEOPLASM OF UNSPECIFIED SITE (7) Generalized weakness Current Visit: Yes Status: Acute Code(s): R53.1 - WEAKNESS (8) Atrial fibrillation Current Visit: Yes Status: Acute Assessment & Plan: Continue rate control with metoprolol. Eliquis on hold but planning to start in a couple days. This was discussed with his data processing clerk, Dr. Tom, yesterday. Code(s): I48.91 - UNSPECIFIED ATRIAL FIBRILLATION (9) Polycythemia Current Visit: Yes Status: Acute Assessment & Plan: Hx of polycythemia but now anemic. Was recently on Jakafi but this was stopped earlier this week when he was hospitalized at [facility]. It was stopped by his retail furniture sales, Dr. Rich. Code(s): D75.1 - SECONDARY POLYCYTHEMIA (10) Anemia Current Visit: Yes Status: Acute Qualifiers: Anemia type: due to chronic kidney disease Assessment & Plan: He recently had a blood transfusion at [facility] the week of 03/05/20 when he was hospitalized there. Code(s): D64.9 - ANEMIA, UNSPECIFIED
[2020-03-10] MEDS ORDERED: Sodium Chloride 0.9% 1000 ML 1,000 ML IV SCH (09:00)
[2020-03-10] MEDS: Colace 100 MG PO SCH (09:47)
[2020-03-10] MEDS: Cordarone 200 MG PO SCH (09:47)
[2020-03-10] MEDS: Lopressor 50 MG PO SCH ×2 (09:47→21:10)
[2020-03-10] MEDS: Ocuvite Tablet PO SCH ×2 (09:47→21:10)
[2020-03-10] MEDS: ECOTRIN 81 MG PO SCH (09:47)
[2020-03-10] MEDS: Zosyn 3.375 GM Vial 3.375 GM in Sodium Chloride 100ML MINI-BAG PLUS 100 ML IV SCH ×3 (10:26→21:11)
[2020-03-10] MEDS: TYLENOL 325 MG PO PRN (10:28)
[2020-03-10 11:54] LABS: BAND 2 % (0.0-2.0); Lymphocytes 5 % (24-44); Monocyte 9 % (0.0-12.0); Neutrophils 84 % (36.-66.); Platelet Estimate DECREASED (NORMAL); Polychromasia 1+; Total Cells Counted 100
[2020-03-10] MEDS ORDERED: TROUGH DRUG LEVELS IJ ONE (17:30)
[2020-03-10] MEDS: VANCOMYCIN 1.5 GRAM/300 ML BAG 1.5 GM/300 ML PIGGYBACK IV SCH (18:02)
[2020-03-10] MEDS: Zocor 10MG PO SCH (21:10)
[2020-03-11] MEDS: Sodium Chloride 0.9% 1000 ML 1,000 ML IV SCH ×4 (00:33→21:03)
[2020-03-11 06:39] LABS: ANION GAP 17.3 MEQ/L (5-15); Creatinine 1 4.04 mg/dL (0.66-1.25); Potassium 3.9 mmol/L (3.5-5.1)
[2020-03-11 06:45] LABS: Hematocrit 26.3 % (42-50); Hemoglobin 8.6 gm/dl (12.5-18.0); Mean Cell Volume 94.9 fl (78-100); Mean Corpuscular Hgb Concent. 32.7 g/dl (32-36); Mean Platelet Volume 12.1 fl (7.5-11.0); Platelet Count 82 K/mm3 (150-450); Red Blood Count 2.77 M/mm3 (4.1-5.6); Red Cell Distribution Width 15.7 % (11.5-14.0); White Blood Count 7.9 K/mm3 (4.0-10.5)
[2020-03-11] MEDS: TYLENOL 325 MG PO PRN (08:37)
[2020-03-11] MEDS: Lopressor 50 MG PO SCH ×2 (09:22→21:19)
[2020-03-11] MEDS: ECOTRIN 81 MG PO SCH (09:23)
[2020-03-11] MEDS: Cordarone 200 MG PO SCH (09:23)
[2020-03-11] MEDS: ELIQUIS 2.5 MG TABLET PO SCH ×2 (09:23→21:19)
[2020-03-11] MEDS: Ocuvite Tablet PO SCH ×2 (09:24→21:20)
[2020-03-11] MEDS: Colace 100 MG PO SCH (09:24)
[2020-03-11 09:25] LABS: BAND 4 % (0.0-2.0); Basophil 1 % (0.0-1.0); Lymphocytes 1 % (24-44); Monocyte 5 % (0.0-12.0); Neutrophils 89 % (36.-66.); Nucleated Red Blood Cell 1 %; Platelet Estimate DECREASED (NORMAL); Total Cells Counted 100; Toxic Granulation 1+
[2020-03-11] MEDS: ROCEPHIN 1 Gm-D5w 50 ml Bag** 1 G/50 ML IVPB IV SCH (10:39)
--- NOTE | 2020-03-11 14:14 | PCM.NOTE ---
Date and Time: 03/11/20 1403 Subjective Assessment: Patient reports continued mouth pain and feels like it was made worse by the barium required for the swallow study he had last week. He does not have much of an appetite. He continues to have nausea but states it is not as bad as it was yesterday. He drank part of an Ensure according to his , Kerry, who is at the bedside. I discussed his code status with him and his decision is to be SCO. I talked with Dr. Owusu again today and he told me he would see him today or tomorrow. - Review of Systems Constitutional: Weakness Respiratory: No Symptoms Cardiac: No Symptoms Abdominal/Gastrointestinal: Other (no stools since admission (had multiple loose stools before admit); states he is either constipated or having diarrhea.) Objective Exam General Appearance: no apparent distress, other (poor eyesight) Neurologic Exam: alert, cooperative, depressed mood/affect Skin Exam: other (multiple scabs on face and right side of neck.) Wound Assessment: Skin/Wound Assessment Wound/Incision Assessment Start: 03/08/20 21: 49 Text: Status: Active Freq: Q6H Protocol: Document 03/11/20 08:00 [facility] (Rec: 03/11/20 08:54 [facility] [id number]) Wound/Incision Assessment Right Arm Wound Assessment Shift Assessment Wound Type Skin Tear Dressing Status Dry & Intact Drainage Amount Minimal Wound Photo Photo Taken No Respiratory Exam: normal breath sounds, lungs clear, No crackles/rales, No rhonchi, No wheezing Cardiovascular Exam: regular rate/rhythm, No murmur, No friction rub, No gallop Gastrointestinal/Abdomen Exam: soft, normal bowel sounds, No tenderness, No distention, No mass Extremity Exam: other (no c/c/e) OBJECTIVE DATA Vital Signs: Vital Signs - 24 hr Temp Pulse Resp BP Pulse Ox 03/11/20 11:31 97.7 F 76 17 133/71 100 03/11/20 06:59 98.7 F 96 H 18 128/72 100 03/11/20 04:06 97.8 F 97 H 16 136/89 99 03/10/20 23:46 97.5 F 81 16 121/71 98 03/10/20 20:31 99 03/10/20 19:11 97.7 F 81 16 127/61 99 03/10/20 16:00 97.7 F 82 18 123/65 99 Pain Assessment - Last Documented Pain Intensity [Right Hip] 0 Pain Intensity 0 Pain Scale Used 0-10 Pain Scale Intake and Output: Intake & Output 03/09/20 03/10/20 03/11/20 03/12/20 06:59 06:59 06:59 06:59 Intake Total 1771 1195 2018 Output Total 425 665 675 100 Balance 2580 570 2887 -100 Weight 123 kg 122.5 kg 123.7 kg Lab Results: Accuchecks Accucheck Value: 185 Accucheck Value: 158 Accucheck Value: 159 Accucheck Value: 165 Lab Results-Last 24 Hours 03/10/20 03/11/20 03/11/20 Range/Units 17:30 05:30 05:30 WBC 7.9 (4.0-10.5) K/mm3 RBC 2.77 L (4.1-5.6) M/mm3 Hgb 8.6 L (12.5-18.0) gm/dl Hct 26.3 L (42-50) % MCV 94.9 (78-100) fl MCH 31.0 (26-32) pg MCHC 32.7 (32-36) g/dl RDW 15.7 H (11.5-14.0) % Plt Count 82 L (150-450) K/mm3 MPV 12.1 H (7.5-11.0) fl Segmented Neutrophils 89 H (36.-66.) % Band Neutrophils 4 H (0.0-2.0) % Lymphocytes (Manual) 1 L (24-44) % Monocytes (Manual) 5 (0.0-12.0) % Basophils (Manual) 1 (0.0-1.0) % Nucleated RBCs 1 % Toxic Granulation 1+ Platelet Estimate DECREASED (NORMAL) RBC Morphology ABNORMAL Sodium 136 L (137-145) mmol/L Potassium 3.9 (3.5-5.1) mmol/L Chloride 102 (98-107) mmol/L Carbon Dioxide 21 L (22-30) mmol/L Anion Gap 17.3 H (5-15) MEQ/L BUN 100 H (9-20) mg/dL Creatinine 4.04 H (0.66-1.25) mg/dL Estimated GFR 15.3 ML/MIN Glucose 148 H (74-106) mg/dL Calcium 9.0 (8.4-10.2) mg/dL Random Vancomycin 8.27 ug/mL Assessment/Plan (1) Sepsis Current Visit: Yes Status: Acute Qualifiers: Sepsis acute organ dysfunction status: with acute organ dysfunction Severe sepsis acute organ dysfunction type: acute renal failure Severe sepsis shock status: without septic shock Assessment & Plan: Improved on IV antibiotics. Vancomycin stopped yesterday. He did receive 2 doses 48 hours apart. Zosyn stopped today. Ceftriaxone started today for UTI which was most likely his cause of sepsis. (2) Chronic kidney disease, stage IV (severe) Current Visit: Yes Status: Acute Assessment & Plan: Nephrology consulted. Continuing normal saline at 100 mL per hour now and will recheck labs in AM. BUN is elevated at 100. Baseline creatinine is high 2's to low 3's. Code(s): N18.4 - CHRONIC KIDNEY DISEASE, STAGE 4 (SEVERE) (3) Acute renal injury Current Visit: Yes Status: Acute Code(s): N17.9 - ACUTE KIDNEY FAILURE, UNSPECIFIED (4) Pneumonia Current Visit: Yes Status: Acute Qualifiers: Laterality: left Lung location: lower lobe of lung Assessment & Plan: On ceftriaxone. Code(s): J18.9 - PNEUMONIA, UNSPECIFIED ORGANISM (5) Cardiomyopathy Current Visit: Yes Status: Acute Assessment & Plan: Holding lasix and metalozone. Code(s): I42.9 - CARDIOMYOPATHY, UNSPECIFIED (6) Metastatic squamous cell carcinoma Current Visit: Yes Status: Acute Assessment & Plan: s/p surgery this year and just finished radiation. Sees Dr. Rich ([facility]) as his oncologist. Code(s): C79.9 - SECONDARY MALIGNANT NEOPLASM OF UNSPECIFIED SITE (7) Generalized weakness Current Visit: Yes Status: Acute Code(s): R53.1 - WEAKNESS (8) Atrial fibrillation Current Visit: Yes Status: Acute Assessment & Plan: Eliquis restarted today; continue metoprolol for rate control. Code(s): I48.91 - UNSPECIFIED ATRIAL FIBRILLATION (9) Polycythemia Current Visit: Yes Status: Acute Assessment & Plan: Hx of this and treatment with Jakfari recently stopped by oncology/hematology Code(s): D75.1 - SECONDARY POLYCYTHEMIA (10) Anemia Current Visit: Yes Status: Acute Qualifiers: Anemia type: due to chronic kidney disease Assessment & Plan: Stable at this time. Last blood transfusion was week of 03/05/20 at [facility]. Code(s): D64.9 - ANEMIA, UNSPECIFIED (11) DNR (do not resuscitate) discussion Current Visit: Yes Status: Acute Assessment & Plan: Patient does not want to be placed on a ventilator or have chest compressions done. He does not want to be resuscitated. This was discussed with the patient and then later with the patient while was at the bedside. Code(s): Z71.89 - OTHER SPECIFIED COUNSELING
[2020-03-11] MEDS: Zocor 10MG PO SCH (21:20)
[2020-03-11] MEDS ORDERED: Lasix 40 MG/4 ML IV ONE (22:36)
[2020-03-12 04:55] LABS: Hematocrit 27.1 % (42-50); Hemoglobin 8.8 gm/dl (12.5-18.0); Mean Cell Volume 92.8 fl (78-100); Mean Corpuscular Hemoglobin 30.1 pg (26-32); Mean Corpuscular Hgb Concent. 32.5 g/dl (32-36); Mean Platelet Volume 10.9 fl (7.5-11.0); Platelet Count 90 K/mm3 (150-450); Red Blood Count 2.92 M/mm3 (4.1-5.6); Red Cell Distribution Width 16.1 % (11.5-14.0); White Blood Count 8.3 K/mm3 (4.0-10.5)
[2020-03-12 05:19] LABS: ALBUMIN 2.7 g/dL (3.5-5.0); ANION GAP 16.3 MEQ/L (5-15); BILIRUBIN,TOTAL 0.5 mg/dL (0.2-1.3); Calcium 8.8 mg/dL (8.4-10.2); Creatinine 1 3.85 mg/dL (0.66-1.25); Potassium 3.8 mmol/L (3.5-5.1); Total Protein 5.5 g/dL (6.3-8.2)
[2020-03-12] MEDS: Sodium Chloride 0.9% 1000 ML 1,000 ML IV SCH (07:04)
[2020-03-12 07:58] LABS: BAND 7 % (0.0-2.0); Lymphocytes 3 % (24-44); Monocyte 6 % (0.0-12.0); Neutrophils 84 % (36.-66.); Platelet Estimate DECREASED (NORMAL); Total Cells Counted 100
[2020-03-12 07:59] LABS: Polychromasia 1+; Toxic Granulation 1+
[2020-03-12] MEDS: TYLENOL 325 MG PO PRN (08:07)
--- NOTE | 2020-03-12 08:29 | PCM.NOTE ---
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 He ordered labs, chest X-ray and dose of IV lasix last night. 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 Discussed with proprietary trader, Chasity Rodriguez, and she plans to see patient today. - Review of Systems Constitutional: Weakness Ears, Nose, & Throat: Other (mouth pain) Cardiac: No Symptoms Abdominal/Gastrointestinal: Other (not much appetite.) Genitourinary Symptoms: Other (Increased frequency overnight with lasix) Skin: Other (pain on right side of forehead) Objective Exam General Appearance: no apparent distress Neurologic Exam: alert, cooperative, normal mood/affect Skin Exam: normal color, warm, other (scaling lesions scattered over face nd neck) Wound Assessment: Skin/Wound Assessment Wound/Incision Assessment Start: 03/08/20 21: 49 Text: Status: Active Freq: Q6H Protocol: Document 03/12/20 07:56 [facility] (Rec: 03/12/20 08:05 [facility] [id number]) Wound/Incision Assessment Right Arm Wound Assessment Shift Assessment Wound Type Skin Tear Dressing Status Dry & Intact Drainage Amount Minimal Wound Photo Photo Taken No Ears, Nose, Throat Exam: other (white patches on palate and inside of right cheek) Cardiovascular Exam: other (irregularly irregular), No murmur, No friction rub, No gallop Gastrointestinal/Abdomen Exam: soft, normal bowel sounds, No tenderness, No distention, No mass Extremity Exam: other (trace edema bilat) OBJECTIVE DATA Vital Signs: Vital Signs - 24 hr Temp Pulse Resp BP Pulse Ox 03/12/20 07:38 98.5 F 100 H 20 136/72 98 03/12/20 06:46 97 03/12/20 04:15 98.8 F 104 H 20 145/93 99 03/11/20 23:42 98.7 F 96 H 17 130/74 98 03/11/20 19:53 97.7 F 94 H 14 163/86 99 03/11/20 19:35 99 03/11/20 16:00 97.1 F 86 15 145/70 99 03/11/20 11:31 97.7 F 76 17 133/71 100 Pain Assessment - Last Documented Pain Intensity [Right Hip] 0 Pain Intensity 0 Pain Scale Used 0-10 Pain Scale Intake and Output: Intake & Output 03/10/20 03/11/20 03/12/20 03/13/20 06:59 06:59 06:59 06:59 Intake Total 1194 2017 2708 Output Total 635 963 4687 200 Balance 530 1343 1334 -200 Weight 122.5 kg 123.7 kg 124.6 kg Lab Results: Accuchecks Accucheck Value: 164 Accucheck Value: 164 Accucheck Value: 189 Accucheck Value: 185 Lab Results-Last 24 Hours 03/11/20 03/12/20 03/12/20 Range/Units 05:30 04:10 04:10 WBC 8.3 (4.0-10.5) K/mm3 RBC 2.92 L (4.1-5.6) M/mm3 Hgb 8.8 L (12.5-18.0) gm/dl Hct 27.1 L (42-50) % MCV 92.8 (78-100) fl MCH 30.1 (26-32) pg MCHC 32.5 (32-36) g/dl RDW 16.1 H (11.5-14.0) % Plt Count 90 L (150-450) K/mm3 MPV 10.9 (7.5-11.0) fl Segmented Neutrophils 89 H 84 H (36.-66.) % Band Neutrophils 4 H 7 H (0.0-2.0) % Lymphocytes (Manual) 1 L 3 L (24-44) % Monocytes (Manual) 5 6 (0.0-12.0) % Basophils (Manual) 1 (0.0-1.0) % Nucleated RBCs 1 % Toxic Granulation 1+ 1+ Platelet Estimate DECREASED DECREASED (NORMAL) RBC Morphology ABNORMAL NORMAL Polychromasia 1+ Sodium 136 L (137-145) mmol/L Potassium 3.8 (3.5-5.1) mmol/L Chloride 104 (98-107) mmol/L Carbon Dioxide 20 L (22-30) mmol/L Anion Gap 16.3 H (5-15) MEQ/L BUN 104 H (9-20) mg/dL Creatinine 3.85 H (0.66-1.25) mg/dL Estimated GFR 16.1 ML/MIN Glucose 164 H (74-106) mg/dL Calcium 8.8 (8.4-10.2) mg/dL Total Bilirubin 0.50 (0.2-1.3) mg/dL AST 31 (17-59) U/L ALT 54 H (0-50) U/L Alkaline Phosphatase 156 H (38-126) U/L Serum Total Protein 5.5 L (6.3-8.2) g/dL Albumin 2.7 L (3.5-5.0) g/dL Radiology Exams: Radiology Procedures Category Date Time Status CHEST 1 VIEW (PORTABLE) Routine Exams 03/12/20 04:00 Taken Assessment/Plan (1) Sepsis Current Visit: Yes Status: Acute Qualifiers: Sepsis acute organ dysfunction status: with acute organ dysfunction Severe sepsis acute organ dysfunction type: acute renal failure Severe sepsis shock status: without septic shock Assessment & Plan: Patient continues on ceftriaxone for UTI. Blood pressure is stable. On IV fluids at 100 mL per hour. (2) Chronic kidney disease, stage IV (severe) Current Visit: Yes Status: Acute Code(s): N18.4 - CHRONIC KIDNEY DISEASE, STAGE 4 (SEVERE) (3) Acute renal injury Current Visit: Yes Status: Acute Assessment & Plan: Dr. Owusu saw patient yesterday and ordered blood work and tests to be called to him today. Code(s): N17.9 - ACUTE KIDNEY FAILURE, UNSPECIFIED (4) Pneumonia Current Visit: Yes Status: Acute Qualifiers: Laterality: left Lung location: lower lobe of lung Assessment & Plan: Repeating chest X-ray today. Continue ceftriaxone. Code(s): J18.9 - PNEUMONIA, UNSPECIFIED ORGANISM (5) Cardiomyopathy Current Visit: Yes Status: Acute Code(s): I42.9 - CARDIOMYOPATHY, UNSPECIFIED (6) Metastatic squamous cell carcinoma Current Visit: Yes Status: Acute Assessment & Plan: Completed radiation for this end of February. Code(s): C79.9 - SECONDARY MALIGNANT NEOPLASM OF UNSPECIFIED SITE (7) Generalized weakness Current Visit: Yes Status: Acute Assessment & Plan: PT/OT consulted. Will need rehab stay before going home. Code(s): R53.1 - WEAKNESS (8) Atrial fibrillation Current Visit: Yes Status: Acute Assessment & Plan: Rate controlled with metoprolol. On eliquis for anticoagulation. 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 Code(s): D75.1 - SECONDARY POLYCYTHEMIA (10) Anemia Current Visit: Yes Status: Acute Qualifiers: Anemia type: due to chronic kidney disease Assessment & Plan: Stable at this time. Had transfusion last week at [facility]. Code(s): D64.9 - ANEMIA, UNSPECIFIED (11) Thrush Current Visit: Yes Status: Acute Assessment & Plan: Will start nystatin. Code(s): B37.0 - CANDIDAL STOMATITIS
--- NOTE | 2020-03-12 08:41 | HP ---
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 Over this past weekend, he had 3 falls at home. He denies passing out during those, but states that his head would spin and his knees would feel weak. One of those falls resulted in some pain in his right hip and so he was transferred by ambulance to [facility] on Thursday and seen by the orthopedic surgeon who said it was a nonsurgical case and he was discharged to home on Thursday with home health. However, the patient had trouble even ambulating into his house and his was having trouble taking care of him due to his weakness and so I directed them to have him brought back to [facility] Emergency Department for further evaluation and treatment. There, he was found to have a left lower lobe pneumonia and, while in the emergency room, he had some rigors and a low-grade fever to 100.2. He reports a little bit of dyspnea. Denies any chest pains or palpitations. He has a history of chronic atrial fibrillation which he sees Dr. Tom for. He had one cardioversion in 2017 and I spoke with Dr. Tom and he reported a fairly recent heart catheterization that didn't show any lesions, but would requiring stenting at this time. When the patient was a [facility] earlier this week, he did receive a blood transfusion. Dr. Tom agrees with holding his Eliquis at this time although there is no known gastrointestinal bleed and Dr. Tom agreed with starting a beta blaine including a dose of IV metoprolol as his heart rate was up to the 130s this morning. The patient reports that his swallowing is getting better. He has a cough, but he says that is from the radiation treatments. REVIEW OF SYSTEMS: As noted in the HPI. PAST MEDICAL HISTORY: Polycythemia, but more recently, anemia and thrombocytopenia. Atrial fibrillation. Coronary artery disease. 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 Multiple skin cancers of his face in the past. Hypertension. Chronic kidney disease with baseline creatinine approximately 2.5. PAST SURGICAL HISTORY: Noncontributory. SOCIAL HISTORY: He lives with his . No tobacco or alcohol use. FAMILY HISTORY: Noncontributory. CURRENT MEDICATIONS: Please see his home medication reconciliation form which I reviewed. ALLERGIES: HYDROCODONE. PHYSICAL EXAMINATION: VITAL SIGNS: Temperature current 98.1, temperature maximum 102, heart rate 96, respiratory rate 18, O2 saturation 99% on 2 liters nasal cannula, BP 132/64. GENERAL: The patient is lying in bed, fatigued, but would answer questions appropriately. In no acute distress. CVS: Tachycardic with an irregular rhythm. CHEST: Clear to auscultation bilaterally when auscultated anteriorly. ABDOMEN: Soft, nontender, nondistended with normal bowel sounds. EXTREMITIES: +2 edema to his knees bilaterally. NECK: He has some dried blood and thick lesions, a healed scar, some loss of hair on his right lower scalp. LABORATORY DATA: UA with greater than 100 WBC, 26-50 RBC, few bacteria. Urine cultures and blood cultures are in lab. Hgb 9.0, WBC 7.5, platelet count 69. Sodium 133, CO2 20, creatinine 3.29, glucose 207, troponin 0.255-0.328. Chest x-ray was read as a hazy left lung base infiltrate. Please see the radiologist's dictation for the full report. He had a modified barium swallow today with formal report from the speech pathologist pending. ASSESSMENT AND PLAN: 1. SEPSIS. He was started on broad spectrum antibiotics with Vancomycin and Zosyn. He was given fluids overnight. His BP was improved today. Will continue with monitoring following his blood cultures and urine cultures and continue the broad spectrum antibiotics. 2. LEFT LOWER LOBE PNEUMONIA. Again, he is covered with broad spectrum antibiotics. I was concerned there may have been aspiration, but the modified barium swallow per the verbal report from the speech therapist was good. 3. ELEVATED TROPONIN. This was discussed with Dr. Tom and thought could be due to more of the sepsis and the chronic kidney disease. 4. CHRONIC KIDNEY DISEASE. The creatinine continues to remain high. 5. CARDIOMYOPATHY WITH CONGESTIVE HEART FAILURE. Will need to monitoring his in's and out's and daily weights closely. 6. GENERALIZED WEAKNESS. The patient is unable to take care of himself at home and most likely will need placement for rehab after his acute stay is over. 7. His general condition is guarded given his multiple health problems. 8. SQUAMOUS CELL CANCER OF HIS NECK. Currently being treated with the oncologist. He just finished up radiation.
[2020-03-12] MEDS: ROCEPHIN 1 Gm-D5w 50 ml Bag** 1 G/50 ML IVPB IV SCH (09:05)
[2020-03-12] MEDS: Nystatin SUSPENSION 60 ML PO SCH ×2 (09:10→13:19)
[2020-03-12] MEDS: Ocuvite Tablet PO SCH (09:13)
[2020-03-12] MEDS: ELIQUIS 2.5 MG TABLET PO SCH (09:15)
[2020-03-12] MEDS: Colace 100 MG PO SCH (09:17)
[2020-03-12] MEDS: Cordarone 200 MG PO SCH (09:18)
[2020-03-12] MEDS: Lopressor 50 MG PO SCH (09:18)
[2020-03-12] MEDS: ECOTRIN 81 MG PO SCH (09:19)
--- NOTE | 2020-03-12 09:24 | XRAY ---
Indication: Atrial fibrillation. Fluid overload. Comparison: March 08, 2020. Portable chest remains hyperinflated and is now clear. Heart is not enlarged for AP portable technique. Bony thorax intact again with mild osteopenia, degenerative changes, and right shoulder foreign-body. No new/acute findings. Impression: Nonacute hyperinflated chest.
[2020-03-12] MEDS ORDERED: VITAMIN D2 PO SCH (10:00)
[2020-03-12 10:11] LABS: Folate (Folic Acid) 8.6 ng/mL (2.76 - >20); MAGNESIUM 2.5 mg/dL (1.6-2.3)
--- NOTE | 2020-03-12 12:26 | CONS ---
THIS REPORT WAS AMENDED ON 03/15/2020 CONSULT DATE: 03/11/2020 REASON FOR CONSULTATION: Acute kidney injury/chronic kidney disease. HISTORY OF PRESENT ILLNESS: The patient is an 79 year old gentleman who has a lot of medical problems including chronic kidney disease stage IV. His baseline GFR is in the 20s. He has been declining over the last few weeks. He had several episodes of falling. Apparently, had femur fracture and was hospitalized at [place] a few weeks ago that was not surgically repaired and he was sent home. At home, he was not doing very well. He had several falls over the last few days, sometimes even hit his head. He was having weakness. He apparently went to [place] again. His head CT was negative. He was sent back home. He was still not doing well, so Dr. Wilkes was contacted and patient was admitted here to [facility] for further management. Patient complains of nausea, poor appetite, not eating/drinking well. On admission, his BUN was 76, creatinine 3.29. It continues to rise. Yesterday, it was 90 and 3.82. Today, BUN was 100, creatinine was 4.04. Sodium is 136, bicarb is 21. His troponin was 0.328. REVIEW OF SYSTEMS: Patient complains of some generalized weakness. Complains of pain in the leg. Complains of poor appetite, nausea. No fever. No active vomiting. No diarrhea. All other systems were reviewed and negative except as listed above. PAST MEDICAL HISTORY: History of chronic kidney disease stage IV, hypertension, nephropathy, diabetes mellitus type 2, vitamin D deficiency, hyperlipidemia, atrial fibrillation, peripheral neuropathy, osteoarthritis, gastroesophageal reflux disease, possible chronic obstructive pulmonary disease, polycythemia, benign prostatic hypertrophy. PAST SURGICAL HISTORY: Includes bilateral hip replacement, right rotator cuff, basal cell cancer removal several times, right knee placement, needle biopsy of the kidney in May 2019, salivary gland removal. HOME MEDICATIONS: Home medicines and medicines in the hospital were reviewed per the medication reconciliation sheet. His home medication included metolazone 5 mg once a day, losartan 25 mg once a day, furosemide 40 mg PO bid along with other medication. FAMILY HISTORY: Denies any history of kidney disease in the family. SOCIAL HISTORY: Denies any tobacco, alcohol, or any substance abuse. Lives with his . PHYSICAL EXAMINATION: Patient is awake, alert, and oriented. Not in any acute distress. Vital signs reviewed at bedside in the hospital. HEAD: Head atraumatic. EYES: Anicteric. Positive pallor. ENT: Mucosa moist. NECK: No JVD. Trachea midline. CHEST: Clear to auscultation bilaterally. No rales. No respiratory distress. CVS: Appears regular. Trace peripheral edema. ABDOMEN: Soft, nontender, positive bowel sounds. No palpable edema. EXTREMITIES: Trace peripheral edema. No cyanosis. NEURO: Awake, alert, oriented X3. Following commands and answering all questions appropriately. PSYCH: Appropriate mood and affect. SKIN: Normal and dry. LABORATORY DATA: Hgb 8.6, WBC 7.9, platelets 82. Sodium 136, bicarb 31, BUN 1, and creatinine 4.04. Troponin 0.328. Urine cultures shows Klebsiella pneumoniae which seems to be pansensitive. ASSESSMENT AND PLAN: 79 year old gentleman with medical problems of : 1. ACUTE KIDNEY INJURY WITH UNDERLYING CHRONIC KIDNEY DISEASE STAGE IV. 2. ACUTE KIDNEY DISEASE LIKELY DUE TO SEPSIS INFECTION. 3. ACUTE TUBULAR NECROSIS SETTING UP FOR AUTOREGULATION. Patient does have underlying chronic kidney disease stage IV clearly, diabetes, hypertension, and nephropathy. Seems to be progressively getting worse. His creatinine a few days ago was 3.16, BUN 68. Despite fluids, antibiotics, and medications, holding his angiotensin receptors and blockers, his renal function does not seem to be improving. He is symptomatic, uremic seems like. He has poor appetite, not eating well, nauseous. Risks, benefits, options, and alternatives of renal placement therapy were also discussed with the patient in detail. Voiced understanding. Wished to proceed with it if needed. If his renal function does not improve by tomorrow, I will have to transfer him to [place] and get him started on dialysis. In the meantime, recommend renal dosing of all medication to avoid nephrotoxins. I will continue to follow him closely. 4. HYPERTENSION. Recommend avoiding SOREN and ARB's using alternative agents as needed. 5. DIABETES MELLITUS TYPE 2. Management per primary MD. 6. URINARY TRACT INFECTION PRESENT ON ADMISSION. I agree with antibiotics. 7. FALLS, WEAKNESS. Management per primary MD. 8. RECENT FEMORAL FRACTURE. Management per primary MD. 9. ANEMIA LIKELY DUE TO KIDNEY DISEASE. Will check on B12, folic acid, and hemoglobin closely. 10. POSSIBLE PNEUMONIA. Patient is already on antibiotic. I will continue to follow him closely. Thank you for the consultation on this patient. Please do not hesitate to contact me for questions.
[2020-03-12 13:55] VITALS: BP 158/67; PULSE 89; O2SAT 95
--- NOTE | 2020-03-22 08:51 | DS ---
DISCHARGE DIAGNOSES: 1) SEPSIS. 2) CHRONIC KIDNEY DISEASE STAGE IV. 3) ACUTE RENAL INJURY. 4) PNEUMONIA. 5) CARDIOMYOPATHY. 6) METASTATIC SQUAMOUS CELL CARCINOMA. 7) GENERALIZED WEAKNESS. 8) ATRIAL FIBRILLATION. 9) POLYCYTHEMIA. 10) ANEMIA. 11) THRUSH. DISCHARGE PHYSICAL EXAMINATION: VITALS: Temperature current 98.5F, temperature max 98.8F, heart rate 100, respiratory rate 20, blood pressure 136/72, weight 124.6 kg. Oxygen saturation 90% on room air. GENERAL: The patient was sitting up in bed a pleasant in no acute distress. He is alert and cooperative. HEENT: His throat had some white patches on his palate inside of his right cheek. CVS: His heart was irregularly irregular. No murmurs, gallops or rubs are appreciated. ABDOMEN: Soft, nontender, nondistended with normal bowel sounds. EXTREMITIES: Trace bilateral edema. SKIN: Warm, dry. He had some scaling lesions scattered over his face and neck. HOSPITAL COURSE: 1) SEPSIS: He was initially started on Vancomycin and Zosyn which was changed to ceftriaxone for a urinary tract infection which is thought to be where the sepsis came from. His blood pressure is stable. He is on fluids at 100 ml/hour. 2) CHRONIC KIDNEY DISEASE STAGE IV: He has a history of chronic kidney disease and has seen Dr. Correa as an outpatient. Dr. Hunt was consulted and saw the patient. 3) ACUTE RENAL INJURY: Dr. Hunt saw the patient last night and called me on the date of discharge and stated that he felt like the patient needed dialysis if he was willing to have this done. I discussed this with the patient and his at noontime and they were agreeable to this so he was transferred to [facility] for hemodialysis as that is not available here at [facility]. They preferred to stay here however dialysis is not available. 4) PNEUMONIA: He was on ceftriaxone and his infiltrate on his chest x-ray cleared. 5) CARDIOMYOPATHY: He sees Dr. Tom as an outpatient and this was stable during his hospitalization although he did have some fluid retention complicated by the renal failure. 6) METASTATIC SQUAMOUS CELL CARCINOMA: He had completed radiation for this at the end of February and had already had surgery for this. He sees oncologist, Dr. Rich. 7) GENERALIZED WEAKNESS: PT and OT were consulted. He will need rehab stay before going home as he has been unable to walk up his steps or ambulate well inside his home to take care of himself. 8) ATRIAL FIBRILLATION: This was rate controlled on metoprolol. He is on Eliquis for anticoagulation that was restarted the day before his discharge. 9) POLYCYTHEMIA: He sees a card maker and was recently taken off medication used to treat this. 10) ANEMIA: Currently stable. He had a transfusion a week before at [facility] when he was admitted there. 11) THRUSH: We started Nystatin. DISCHARGE MEDICATIONS: Please see the discharge order. DISPOSITION: The patient was discharged to [facility] in fair but guarded condition. He was transferred due to needing hemodialysis. Dr. Hunt was accepting physician at [facility].
== END 2020-03-12 16:40 | disposition home or self-care (01) | DRG 871 ==
LOC: ED 15:05 → ICU 20:17 → OBSVTOIN 03-09 05:44 → ICU 03-09 16:09
PROVIDERS: ADMIT Internal Medicine; ATTEND Internal Medicine
DX: A41.9 Sepsis, unspecified organism (principal); J18.9 Pneumonia, unspecified organism; N17.9 Acute kidney failure, unspecified; I13.0 Hypertensive heart and chronic kidney disease with heart failure and stage 1 through stage 4 chronic kidney disease, or unspecified chronic kidney disease; N18.4 Chronic kidney disease, stage 4 (severe); I42.9 Cardiomyopathy, unspecified; C79.9 Secondary malignant neoplasm of unspecified site; B02.29 Other postherpetic nervous system involvement; I50.9 Heart failure, unspecified; E11.22 Type 2 diabetes mellitus with diabetic chronic kidney disease; R53.1 Weakness; R19.7 Diarrhea, unspecified; I95.9 Hypotension, unspecified; E78.00 Pure hypercholesterolemia, unspecified; J44.9 Chronic obstructive pulmonary disease, unspecified; R29.6 Repeated falls; D64.9 Anemia, unspecified; R79.89 Other specified abnormal findings of blood chemistry; I48.91 Unspecified atrial fibrillation; D75.1 Secondary polycythemia; B37.9 Candidiasis, unspecified; Z79.899 Other long term (current) drug therapy; Z79.01 Long term (current) use of anticoagulants
CPT/HCPCS: 36415; 71045; 74230; 80048; 80053; 80202; 81001; 82550; 82607; 82728; 82746; 82805; 82962; 83036; 83540; 83605; 83735; 84484; 85025; 87040; 87077; 87086; 87186; 92611; 93005; 93041; 94762; 96360; 96365; 96368; 97162; 99291; 99292; G0378; 94760; 99285; J0696; J1817; J1940; J2543; A9270-GY; J3370